=== PATIENT | female | born 1955 | race Hispanic/Latino ===

== ENCOUNTER 2023-10-27 11:46 | Emergency (ER) | payer OTHER ==
[~2023-10-27] VITALS: Ht 160 cm; Wt 68.0 kg
[2023-10-27 12:11] VITALS: BP 101/71; PULSE 85; RESP 18; O2SAT 97
[2023-10-27 12:41] LABS: SARS-CoV-2, RNA, NAAT POSITIVE SARS CoV-2 (NEGATIVE)
[2023-10-27 12:44] LABS: INFLUENZA TYPE A Negative For Type A (NEGATIVE); INFLUENZA TYPE B Negative For Type B (NEGATIVE)
[2023-10-27] MEDS ORDERED: BENZ-39 PO (13:22)
[2023-10-27] MEDS ORDERED: NIRM1TAB5 PO (13:22)
== END 2023-10-27 13:33 | disposition home or self-care (01) ==
LOC: EDH 11:46
DX: U07.1 COVID-19 (principal); B34.9 Viral infection, unspecified
CPT/HCPCS: 99283; 87635; 87804 ×2; C9803